=== PATIENT | female | born 1990 | race Caucasian/White ===

== ENCOUNTER 2017-03-18 20:56 | Emergency (ER) | payer OTHER, SELFPAY ==
[~2017-03-18 20:56] MED LIST: ISOVUE-370 76%-LOCM 1 ML ONE
--- NOTE | 2017-03-18 21:39 | RAD ---
CHEST ONE VIEW: History: Chest pain. Comparison: 02-26-10 FINDINGS: Cardiac silhouette is magnified by projection. Pulmonary vasculature is unremarkable. Mediastinum is midline. There is no lobar consolidation or evidence of pneumothorax. IMPRESSION: No active cardiopulmonary abnormalities are demonstrated. POS: [facility]
[2017-03-18 22:01] LABS: #Eosinphils 0.2 thou/uL (0.0-0.7); #Lymphocytes 2.9 thou/uL (1.20-3.40); #Monocytes 0.7 thou/uL (0.11-0.59); #Neutrophils 8.1 thou/uL (1.40-6.50); %Lymphocytes 24.2 % (21.0-51.0); Hematocrit 37.9 % (36.0-47.0); Mean Platelet Volume 6.5 fL (7.4-10.4); Red Blood Cell (RBC) Count 4.37 mill/uL (4.20-5.40)
[2017-03-18] MEDS ORDERED: Morphine 4 MG/ML VIAL ONE (22:05)
[2017-03-18 22:06] LABS: PTT 25.4 SEC (22.9-36.1); Prothrombin Time 12.6 SEC (12.0-14.7)
[2017-03-18] MEDS ORDERED: Mag-Al 1200 mg/1200 mg/30 ML UDCUP ONE (22:12)
[2017-03-18] MEDS ORDERED: Lidocaine Viscous Sol 2% 15 ml UD Cup ONE (22:12)
[2017-03-18 22:22] LABS: ALT (SGPT) 23 U/L (8-55); AST (SGOT) 25 U/L (5-34); Alkaline Phosphatase 138 U/L (40-150); Anion Gap 14 mmol/L (10-20); BUN (Urea Nitrogen) 9 mg/dL (7.0-18.7); Bilirubin, Total Less than 0.2 mg/dL (0.2-1.2); CK (CPK) 32 U/L (29-168); Calc. Creatinine Clearance 0 mL/min (70-130); Calcium 9.1 mg/dL (7.8-10.44); Carbon Dioxide 25 mmol/L (22-29); Chloride 103 mmol/L (98-107); Estimated GFR-MDRD Greater than 90; Globulin 3.4 g/dL (2.4-3.5); Lipase 18 U/L (8-78); Protein, Total 7.2 g/dL (6.0-8.3)
[2017-03-18 22:26] LABS: Troponin I Less than 0.010 ng/mL (< 0.028)
--- NOTE | 2017-03-18 23:55 | CT ---
CT ARTERIOGRAM CHEST WITH IV CONTRAST AND 3D MIP IMAGING: History: Chest pain. FINDINGS: There is good contrast opacification of the pulmonary arteries and thoracic aorta with normal branchi ng of the great vessels. No mediastinal adenopathy or pleural fluid are evident. No lobar consolidati on. IMPRESSION: No CT evidence of pulmonary embolus. POS: [facility]
== END 2017-03-19 00:06 | disposition home or self-care (01) ==
LOC: ERS 20:56
DX: R06.00 Dyspnea, unspecified (principal); R10.811 Right upper quadrant abdominal tenderness
CPT/HCPCS: 36415; 71010; 71275; 80053; 82550; 82553; 83690; 84484; 85025; 85379; 85610; 85730; 93005; 96361; 96374; J2270

== ENCOUNTER 2017-12-21 08:56 | Outpatient (CLI) | payer OTHER | END 2017-12-21 08:57 | disposition home or self-care (01) | LOC: BICULT 08:56 | PROVIDERS: ATTEND Nurse Practitioner | DX: O09.92 Supervision of high risk pregnancy, unspecified, second trimester (principal); Z3A.24 24 weeks gestation of pregnancy | CPT/HCPCS: 76805 ==

== ENCOUNTER 2018-04-07 06:43 | Inpatient (IN) | payer OTHER ==
[2018-04-07 07:31] VITALS: BMI 42.1
[2018-04-07] MEDS ORDERED: Ondansetron HCl/PF 4 MG/2 ML Vial IVP PRN (08:41)
[2018-04-07] MEDS ORDERED: Ondansetron PF 4 MG/2 ML Vial IVP PRN ×2 (08:41→08:45)
[2018-04-07] MEDS ORDERED: Promethazine HCl 25 MG/ML VIAL IM PRN ×2 (08:41→08:45)
[2018-04-07] MEDS ORDERED: Naloxone HCl 0.4 mg/ml Vial IV PRN (08:41)
[2018-04-07] MEDS ORDERED: Promethazine HCl 25 MG SUPP PR PRN (08:41)
[2018-04-07] MEDS ORDERED: Naloxone HCl 0.4 mg/ml Vial IVP PRN ×2 (08:41)
[2018-04-07] MEDS ORDERED: Eucerin (Mineral Oil/Petrolatum,White) 30 gm Jar TOP PRN (08:41)
[2018-04-07] MEDS ORDERED: Communication Order-Pharmacy FS SCH (08:45)
[2018-04-07] MEDS ORDERED: Ketorolac Tromethamine 30 MG/ML VIAL IVP SCH ×3 (08:45→12:00)
[2018-04-07] MEDS ORDERED: Bicitra 30 ML UDCUP PO SCH (08:45)
[2018-04-07] MEDS ORDERED: Lactated Ringer's 1,000 ML IV SCH (08:45)
[2018-04-07] MEDS ORDERED: CEFAZOLIN/Water 2 GM/20 ML SYRINGE SLOW IVP SCH (08:45)
[2018-04-07] MEDS ORDERED: Fentanyl 100 MCG/2 ML VIAL ONE (08:49)
[2018-04-07] MEDS ORDERED: Morphine PF 1 MG/ML SYR ONE (08:49)
[2018-04-07] MEDS ORDERED: Oxytocin 10 UNITS/ML VIAL ONE (08:50)
[2018-04-07] MEDS ORDERED: Ondansetron PF 4 MG/2 ML Vial ONE (08:50)
[2018-04-07] MEDS ORDERED: Dexamethasone 4 mg/ml Vial ONE (08:50)
[2018-04-07] MEDS ORDERED: PHENYLEPHRINE-NS 100 MCG/ML 10 ML SYRINGE ONE (08:50)
[2018-04-07] MEDS ORDERED: Ketorolac Tromethamine 30 MG/ML VIAL ONE ×2 (08:50→10:50)
[2018-04-07] MEDS ORDERED: Bicitra 30 ML UDCUP ONE (08:54)
[2018-04-07] MEDS ORDERED: Lidocaine 2% PF Inj 2 ML VIAL ONE (08:55)
[2018-04-07] MEDS: CEFAZOLIN 2 GM/50 ML BAG ONE ×2 (08:55→09:04)
[2018-04-07] MEDS ORDERED: Bupivacaine 0.75% W/DEXTROSE 8.25% 2 ML AMP ONE (08:55)
[2018-04-07 08:58] LABS: Hemoglobin 12.1 g/dL (12.0-16.0); Mean Corpuscular HGB CONC 34.1 g/dL (32.0-36.0); Mean Corpuscular Hemoglobin 29.5 pg (27.0-31.0); Mean Corpuscular Volume 86.6 fL (78.0-98.0); Platelet Count 272 thou/uL (130-400); RBC Distribution Width 13.5 % (11.5-14.5); White Blood Cell (WBC) Count 8.7 thou/uL (4.8-10.8)
[2018-04-07 09:30] LABS: HBSAg Index 0.21 S/CO (0-0.99); Hep B Surf Ag Non-Reactive S/CO (NonReactive); Syphilis Antibody Nonreactive (Nonreactive); Syphilis Antibody Index 0.03 S/CO (<1.00 Non-Reactive)
[2018-04-07] MEDS ORDERED: diphenhydrAMINE 50 MG/ML VIAL ONE (10:49)
[2018-04-07] MEDS: diphenhydrAMINE 50 MG/ML VIAL IVP PRN ×2 (11:03→21:28)
[2018-04-07] MEDS: Lactated Ringer's 1,000 ML IV SCH ×2 (11:30→15:38)
[2018-04-07] MEDS: Acetaminophen 1,000 MG in Premix Bag 1 BAG IVPB PRN ×2 (11:51→19:54)
[2018-04-07] MEDS ORDERED: NS / Oxytocin 40 units/1000ml 1,000 ML ONE (11:55)
[2018-04-07] MEDS ORDERED: NS / Oxytocin 40 units/1000ml 1,000 ML IV SCH (12:20)
[2018-04-07] MEDS ORDERED: Lanolin Ointment 7 GM TUBE TOP PRN (12:20)
[2018-04-07] MEDS ORDERED: Adacel (T-DAP) 0.5 ML SYRINGE IM ONE (12:20)
[2018-04-07] MEDS ORDERED: Bisacodyl 10 MG SUPP PR PRN (12:20)
[2018-04-07] MEDS ORDERED: Ibuprofen 800 MG TAB PO SCH (14:00)
[2018-04-07] MEDS ORDERED: Morphine 2 MG/ML SYRINGE SLOW IVP PRN (14:24)
[2018-04-07] MEDS: Ketorolac Tromethamine 30 MG/ML VIAL IVP SCH ×2 (16:42→21:35)
[2018-04-07] MEDS ORDERED: Zolpidem Tartrate 5 MG TAB PO PRN (20:45)
[2018-04-07] MEDS: Simethicone Chewable 80 MG TAB PO PRN (21:29)
[2018-04-07] MEDS: Docusate Calcium (SURFAK) 240 MG CAP PO SCH (21:29)
[2018-04-08] MEDS: Lactated Ringer's 1,000 ML IV SCH ×3 (00:20→14:36)
[2018-04-08] MEDS: Ferrous Sulfate 325 MG TAB PO SCH ×2 (00:21→07:18)
[2018-04-08] MEDS: HYDROcodone/Acetaminophen 5/325 mg Tablet PO PRN ×3 (02:39→21:35)
[2018-04-08] MEDS: Ketorolac Tromethamine 30 MG/ML VIAL IVP SCH ×2 (05:05→10:30)
--- NOTE | 2018-04-08 06:12 | PDOC.OPDEL ---
OB Operative/Delivery Note Delivery Dr/Surgeon: Resident: Phyllis Perdue MD, PGY-3 Assist: Attending: Tata Bourne MD Pre-Delivery Diagnosis: scheduled section Procedure/Post Delivery Dx: repeat low transverse CS Weeks gestation: 39 Anesthesia: spinal - Findings A Sex: male Weight: 4.023 kg - 1 min: 8 - 5 min: 9 - Additional Findings/Plan Placenta delivered: manual removal findings: low transverse hysterotomy without extension, normal uterus, normal ovaries Estimated blood loss: 800 mL Compilations/Other Findings: Anterior uterine adhesions which were easily dissected down Post delivery plan: routine recovery (Please see dictated operative report for full details.)
--- NOTE | 2018-04-08 06:15 | PDOC.PP ---
Post Progress Note Post Day #: POD#1 Subjective: Resting, no complaints. PO intake tolerated: yes Flatus: no Ambulation: no Vital Signs (12 hours) Temp Pulse Resp BP Pulse Ox 04/08/18 06:03 18 04/08/18 03:05 98.6 F 90 20 112/56 L 04/08/18 02:00 18 04/08/18 00:00 97.8 F 85 20 108/59 L 04/07/18 22:00 18 04/07/18 20:31 97.9 F 89 16 94/54 L 92 L Weight Weight 101.151 kg - Physical Examination General: NAD Respiratory: non-labored breathing Abdominal: no distention Extremities: negative homans (B) Psychiatric: normal affect Result Diagrams: 04/07/18 08:02 Additional Labs: Post Labs Blood Type A POSITIVE 04/07/18 08:02 Hep Bs Antigen Non-Reactive S/CO (NonReactive) 04/07/18 08:02 - Assessment/Plan Doing well s/p repeat C/S. Advance diet. Ambulate. H/H pending. Cont. Dilantin.
--- NOTE | 2018-04-08 06:15 | PDOC.PP ---
Post Progress Note Post Day #: 1 Subjective: Feeling well this morning. Up to the BR without issue this morning. Pain adequately controlled. PO intake tolerated: yes Flatus: yes Ambulation: yes Vital Signs (12 hours) Temp Pulse Resp BP Pulse Ox 04/08/18 06:03 18 04/08/18 03:05 98.6 F 90 20 112/56 L 04/08/18 02:00 18 04/08/18 00:00 97.8 F 85 20 108/59 L 04/07/18 22:00 18 04/07/18 20:31 97.9 F 89 16 94/54 L 92 L Weight Weight 101.151 kg - Physical Examination General: NAD Cardiovascular: no m/r/g, RRR Respiratory: clear to auscultation bilaterally Abdominal: + bowel sounds, lochia, no distention, appropriately TTP Fundus firm & at: umbilicus Skin: CS incision dry & intact (pressure dressing still in place, no oozing), no rash Neurological: no gross focal deficits Psychiatric: A&Ox3, normal affect Result Diagrams: 04/08/18 05:44 Additional Labs: Post Labs Blood Type A POSITIVE 04/07/18 08:02 Hep Bs Antigen Non-Reactive S/CO (NonReactive) 04/07/18 08:02 (1) Previous section Code(s): Z98.891 - HISTORY OF UTERINE SCAR FROM PREVIOUS SURGERY Status: Acute (2) Epilepsy Code(s): G40.909 - EPILEPSY, UNSP, NOT INTRACTABLE, WITHOUT STATUS EPILEPTICUS Status: Acute (3) Glucose intolerance Code(s): E74.39 - OTHER DISORDERS OF INTESTINAL CARBOHYDRATE ABSORPTION Status : Acute (4) Positive GBS test Code(s): B95.1 - STREPTOCOCCUS, GROUP B, CAUSING DISEASES CLASSD ELSWHR Status : Acute - Assessment/Plan 28 yo F now 3003 s/p rLTCS on 04/07 1. POD #1 - Meeting all post op milestones - No flatus or BM yet - Pain adequately controlled - Encouraged ambulation today 2. Epilepsy - Dilantin restarted - Discuss implications of 3. GBS positive - Membranes intact at delivery 4. Glucose intolerance - Failed 1 hour, nml 3 hour - Recommend f/u pp Continue current plan of care. <Phyllis Orlando E - Last Filed: 12/14/18 08:28> Vital Signs (12 hours) Temp Pulse Resp BP Pulse Ox 04/09/18 08:00 97.9 F 97 16 139/63 95 04/09/18 05:30 97.5 F L 106 H 20 129/76 04/09/18 01:15 98.0 F 107 H 20 130/75 Weight Weight 101.151 kg Result Diagrams: 04/09/18 09:04 Additional Labs: Post Labs Blood Type A POSITIVE 04/07/18 08:02 Hep Bs Antigen Non-Reactive S/CO (NonReactive) 04/07/18 08:02 <Geoffrey Mcclain - Last Filed: 04/09/18 10:06> Attending Addendum - Attending Addendum Date/Time: 04/09/18 1006 I evaluated the patient and discussed the management with Dr. Orlando. I agree with the Assessment and Plan documented above. <Geoffrey Mcclain - Last Filed: 04/09/18 10:06>
[2018-04-08 06:19] LABS: Hemoglobin 10.9 g/dL (12.0-16.0); Mean Corpuscular HGB CONC 34.1 g/dL (32.0-36.0); Mean Corpuscular Volume 88.1 fL (78.0-98.0); Mean Platelet Volume 6.9 fL (7.4-10.4); Platelet Count 235 thou/uL (130-400); RBC Distribution Width 13.5 % (11.5-14.5); Red Blood Cell (RBC) Count 3.63 mill/uL (4.20-5.40); White Blood Cell (WBC) Count 6.7 thou/uL (4.8-10.8)
[2018-04-08] MEDS: Docusate Calcium (SURFAK) 240 MG CAP PO SCH ×2 (07:59→21:37)
[2018-04-08] MEDS: Prenatal Vitamin 1 TAB PO SCH (07:59)
[2018-04-08] MEDS: diphenhydrAMINE 50 MG/ML VIAL IVP PRN (07:59)
[2018-04-08] MEDS ORDERED: Sodium Chloride 0.9% 10 ML ONE (10:29)
[2018-04-08] MEDS: Ibuprofen 800 MG TAB PO SCH ×2 (14:30→21:37)
--- NOTE | 2018-04-08 15:39 | PDOC.EVN ---
Event Note - Event Note Event Note: I was called to the room for increased pain. Pt is about 30hrs after csection and had received duromorph at time of spinal. Pt reports she is hurting alot more than before since she got up at 230PM to go to the bathroom. She is tolerating a regular diet and is ambulating. today she had toradol at 0700, ibuprofen at 1400 with two norco 5/325. 98 118/58 83 Abdomen soft but tender incision clean intact with dressing. cbc wc 6.9 hbg10.9 hct 32 plate 239 a/p 28YO POD 1 UNCOMPLICATED REPEAT C SECTION TREATED WITH DUROMORPH AT TIME OF SPINAL. Likely her increased pain is the result of the long acting analgesic wearing off. will give 10mg morphine and zofran 8mg sl. Will continue po regimen and reevaluate in a few hours.
[2018-04-08] MEDS ORDERED: Morphine 2 MG/ML SYRINGE IM SCH (15:45)
[2018-04-08] MEDS ORDERED: Ondansetron ODT 4 MG TAB SL SCH (16:30)
[2018-04-09] MEDS: Ferrous Sulfate 325 MG TAB PO SCH ×3 (00:43→20:58)
[2018-04-09] MEDS: HYDROcodone/Acetaminophen 5/325 mg Tablet PO PRN ×4 (01:26→18:14)
[2018-04-09] MEDS: Lactated Ringer's 1,000 ML IV SCH ×3 (01:53→15:49)
--- NOTE | 2018-04-09 03:36 | OP ---
DATE OF PROCEDURE: 04/07/2018 RESIDENT SURGEON: Phyllis Orlando M.D., PGY-3 ATTENDING SURGEON: Paul Bourne M.D. PROCEDURE PERFORMED: Repeat low transverse section. PREOPERATIVE DIAGNOSES: 1. Term uterine . 2. Previous x2. 3. Epilepsy. 4. Glucose intolerance. 5. Group B streptococcus positive. POSTOPERATIVE DIAGNOSES: 1. Status post repeat low transverse section with anterior adhesions noted. 2. Term uterine . 3. Previous x2. 4. Epilepsy. 5. Glucose intolerance. 6. Group B streptococcus positive. ANESTHESIA: Spinal. INDICATIONS: The patient is a 28-year-old, G3, P2-0-0-2 at 39.2 weeks' gestation, who presented for repeat scheduled . PROCEDURE IN DETAIL: After risks, benefits, and alternatives were explained to the patient, she gave informed consent. Preoperative antibiotics included cefazolin 2 grams IV. The patient was taken to the operating room and spinal anesthesia was initiated. She was placed in supine position with left tilt, and prepped and draped in the usual sterile fashion. A Pfannenstiel incision was made with a scalpel and carried down to the level of the fascia, which was sharply nicked. The fascial cut was extended bilaterally with Greene scissors. The inferior and superior edges of the cut fascial edges were elevated with Candie clamps and the underlying rectus muscles were sharply and bluntly dissected free. The recti were divided digitally and retracted manually. The peritoneum was entered bluntly and some anterior adhesions were noted, which were taken down without difficulty. The peritoneum was retracted manually. Adi O was placed. Bladder flap was made with Metzenbaum scissors. A low transverse score was made with a scalpel and the uterus was entered in the midline with the scalpel. Clear fluid was seen. The hysterotomy was extended manually. The was noted to be vertex and easily delivered by fundal pressure. Mouth and nares were bulb suctioned. Cord clamped and cut and grossly normal male was handed to the waiting nurse. Cord blood was obtained. Placenta was manually extracted and found to be intact with three vessel cord and discarded. The endometrium was curetted with a dry lap. The hysterotomy was repaired with a running locking 1-0 Monocryl suture. Following this, hemostasis was noted. The abdomen was irrigated and suctioned free of clots. The ovaries and fallopian tubes were visualized and noted to be normal appearing. The uterus was internalized and Adi O was removed. The left edge of the hysterotomy was noted to be slightly oozing and a figure-of- eight suture was placed with good hemostasis. The peritoneum was closed with a running nonlocking 2-0 chromic suture. The fascia was closed with a running nonlocking 0 PDS suture x2. The subcutaneous tissue was irrigated and all bleeders were cauterized. The subcutaneous tissue was approximated with a running 2-0 plain gut suture. The skin was approximated with 4-0 Monocryl suture and Aquacell and a pressure dressing were applied. All counts were correct. The patient tolerated the procedure well, was taken to recovery room in stable condition. QBL: 681 mL. COMPLICATIONS: Anterior uterine adhesions noted, which were easily dissected down. SPECIMENS: Cord blood sent to lab for blood type. FINDINGS: Grossly normal male infant with Apgars of 8 and 9. Grossly normal placenta with three vessel cord discarded. DRAINS: [place] to gravity draining clear urine. Job ID: [id number] [facility]
[2018-04-09] MEDS: Ibuprofen 800 MG TAB PO SCH (05:39)
--- NOTE | 2018-04-09 07:05 | PDOC.PP ---
Post Progress Note Post Day #: 2 Subjective: Feeling ok this morning. She is tolerating PO and ambulating but pain increases after she is walking around. She is passing flatus and vaginal bleeding is minimal. Voiding without issue. [place] helps some with pain but she had the most relief with toradol. PO intake tolerated: yes Flatus: yes Ambulation: yes Vital Signs (12 hours) Temp Pulse Resp BP Pulse Ox 04/09/18 01:15 98.0 F 107 H 20 130/75 04/08/18 20:20 98.5 F 88 20 123/56 L 95 04/08/18 20:00 95 Weight Weight 101.151 kg - Physical Examination General: NAD Cardiovascular: no m/r/g, RRR Respiratory: clear to auscultation bilaterally, non-labored breathing Abdominal: + bowel sounds, lochia (scant), no distention, appropriately TTP Fundus firm & at: 1 cm above umbilicus Extremities: negative homans (B) Skin: CS incision dry & intact (bandage in place) Neurological: no gross focal deficits Psychiatric: A&Ox3, normal affect Result Diagrams: 04/08/18 05:44 Additional Labs: Post Labs Blood Type A POSITIVE 04/07/18 08:02 Hep Bs Antigen Non-Reactive S/CO (NonReactive) 04/07/18 08:02 (1) Previous section Code(s): Z98.891 - HISTORY OF UTERINE SCAR FROM PREVIOUS SURGERY Status: Acute (2) Epilepsy Code(s): G40.909 - EPILEPSY, UNSP, NOT INTRACTABLE, WITHOUT STATUS EPILEPTICUS Status: Acute (3) Glucose intolerance Code(s): E74.39 - OTHER DISORDERS OF INTESTINAL CARBOHYDRATE ABSORPTION Status : Acute (4) Positive GBS test Code(s): B95.1 - STREPTOCOCCUS, GROUP B, CAUSING DISEASES CLASSD ELSWHR Status : Acute - Assessment/Plan 28 yo F now 3003 s/p rLTCS on 04/07 1. POD #2 - Meeting all post op milestones - Passing flatus - Pain adequately controlled - Encouraged ambulation today - Will try toradol instead of motrin for the day with norco PRN 2. Epilepsy - Dilantin restarted - Discuss implications of 3. GBS positive - Membranes intact at delivery 4. Glucose intolerance - Failed 1 hour, nml 3 hour - Recommend f/u pp Continue current plan of care.
--- NOTE | 2018-04-09 08:21 | PRG ---
DATE OF SERVICE: 04/09/2018 POSTOPERATIVE PROGRESS NOTE PRIMARY OB: Josiah Marie MD SUBJECTIVE: The patient is a 28-year-old female, now postop day 3 status post a repeat . The patient has been having difficulty managing her pain consistently with oral medications that she receives and is requiring regular q.4 hours oral medications of the hydrocodone, usually two 5 mg tablets, and 800 mg of ibuprofen 3 times a day. The patient has difficulty getting out of bed. She does tolerate diet and is using the bathroom. Complicating her picture is during the surgical case, my glove was inadvertently cut somehow, unsure how long, but the end of the glove had been cut open exposing the patient to any bacterial jos that may have been present. OBJECTIVE: VITAL SIGNS: The patient remains afebrile with her most recent vital signs showing a blood pressure of 130/75, heart rate of 107, respiratory rate of 20, and temperature 98.0. GENERAL: She appears to be in some distress, but seems comfortable and staying still. ABDOMEN: Her fundus is tender, but firm. Her incision is clean, dry, and intact with Silvercel dressing. LABORATORY DATA: CBC is pending. ASSESSMENT AND PLAN: The patient is a 28-year-old female, postop day 3 with difficulty managing pain appropriately for her. The patient does admit that she has a very low tolerance pain itself. She has been maxing out on her available medication for pain. Given her more uncommon pain baseline and the known incident with the broken glove, there is some question or concern, is she developing a uterine infection, though the patient is afebrile. I will be repeating a CBC to compare to her prior CBCs, which have all been with a normal white blood cell count. We will continue postop management here in the hospital with pain control. Pain medications include hydrocodone 2 tablets p.o. p.r.n. for pain and ibuprofen 800 mg p.o. q.8 hours to be taken as scheduled. Job ID: [id number]
[2018-04-09 09:26] LABS: #Eosinphils 0.2 thou/uL (0.0-0.7); #Lymphocytes 1.4 thou/uL (1.20-3.40); #Monocytes 0.4 thou/uL (0.11-0.59); #Neutrophils 4.1 thou/uL (1.40-6.50); %Basophils 0.6 % (0.0-1.0); %Eosinophils 2.7 % (0.0-10.0); %Lymphocytes 22.9 % (21.0-51.0); %Neutrophils 67.7 % (42.0-75.0); Hemoglobin 11.4 g/dL (12.0-16.0); Mean Corpuscular HGB CONC 34.1 g/dL (32.0-36.0); Mean Corpuscular Hemoglobin 30.3 pg (27.0-31.0); Mean Corpuscular Volume 89.1 fL (78.0-98.0); Mean Platelet Volume 7.1 fL (7.4-10.4); Platelet Count 234 thou/uL (130-400); RBC Distribution Width 13.7 % (11.5-14.5); Red Blood Cell (RBC) Count 3.74 mill/uL (4.20-5.40); White Blood Cell (WBC) Count 6.1 thou/uL (4.8-10.8)
[2018-04-09] MEDS: Prenatal Vitamin 1 TAB PO SCH (10:01)
[2018-04-09] MEDS: Docusate Calcium (SURFAK) 240 MG CAP PO SCH (10:01)
[2018-04-09] MEDS: Ketorolac Tromethamine 30 MG/ML VIAL IM SCH ×2 (11:35→18:12)
[2018-04-09] MEDS ORDERED: Bisacodyl 10 MG SUPP PR SCH (12:00)
[2018-04-09] MEDS ORDERED: Ketorolac Tromethamine 60 MG/2 ML VIAL IM SCH (12:00)
--- NOTE | 2018-04-09 12:01 | PDOC.EVN ---
Event Note - Event Note Event Note: Paged by nurse due to patient having "anxiety attack" from the pain. The nurse reported that the patient had gotten up to go walk around and then started having severe pain. She began hyperventilating and her heart rate went up into the 130's. The nurse had her lay back down and her pulse improved to the 90's. She gave her a dose of IM toradol at that time. I went to assess the patient and she appeared to be laying comfortably in bed with a heating pad over her abdomen. Her abdominal exam was significant for diffuse abdominal tenderness, worse in the lower abdomen. No rebound, guarding, or distension. The patient had a normal pulse and respiratory rate. She endorses flatus, but denies BM. On chart review, the patient's hemaglobin has increased from yesterday and her pulse has been 90s-100s, which decreases the likelihood for any internal bleeding. The patient has also been afebrile and has had a normal WBC count, which decreases the likelihood of intra-abdominal infection. Will keep these both in the differential if the patient's clinical status deteriorates. At this time though it appears that the patient has a low pain threshold, so will attempt to maintain better pain control. There could also be a component of constipation contributing. -Will reassess in one hour as pt just received a dose of toradol -Continue heating pad as needed -Will give a one time dose of dulcolax -Simethicone prn <Sandie Reyna - Last Filed: 04/09/18 11:55> Attending Addendum - Attending Addendum Date/Time: 04/09/18 [id number] I evaluated the patient and discussed the management with Dr. Reyna. I agree with the Assessment and Plan documented above. <Geoffrey Mcclain - Last Filed: 04/09/18 14:15>
[2018-04-09] MEDS ORDERED: Simethicone Chewable 80 MG TAB PO SCH (12:15)
--- NOTE | 2018-04-09 14:00 | PDOC.EVN ---
Event Note - Event Note Event Note: Re-evaluated patient. She reports having a BM and that her pain is significantly improved after that. She is able to ambulate now with minimal pain and is wanting to eat something for lunch. She is due for a norco if needed, but she says that at this time she doesn't need it and will let the nurse know if she needs it after walking. -Continue bowel regimen -Continue pain regimen with norco prn and toradol scheduled. If pain remains controlled, can switch to ibuprofen tomorrow. <Sandie Reyna - Last Filed: 04/09/18 13:58> Attending Addendum - Attending Addendum Date/Time: 04/09/18 1412 I evaluated the patient and discussed the management with Dr. Reyna. I agree with the Assessment and Plan documented above. <Geoffrey Mcclain - Last Filed: 04/09/18 14:13>
[2018-04-09] MEDS: Ibuprofen 800 MG TAB PO PRN (20:58)
[2018-04-09] MEDS: Simethicone Chewable 80 MG TAB PO PRN (20:58)
[2018-04-10] MEDS: HYDROcodone/Acetaminophen 5/325 mg Tablet PO PRN (00:28)
[2018-04-10] MEDS: Docusate Calcium (SURFAK) 240 MG CAP PO SCH ×2 (00:30→09:05)
[2018-04-10] MEDS: Ibuprofen 800 MG TAB PO PRN (06:44)
--- NOTE | 2018-04-10 07:38 | PDOC.PP ---
Post Progress Note Post Day #: 3 Subjective: Feeling much better today. Pain adequately controlled, tolerating PO and felt much better after BM yesterday. Feels ready to go home today. PO intake tolerated: yes Flatus: yes Ambulation: yes Vital Signs (12 hours) Pulse Ox 04/09/18 20:00 99 Weight Weight 101.151 kg - Physical Examination General: NAD Cardiovascular: no m/r/g, RRR Respiratory: clear to auscultation bilaterally Abdominal: + bowel sounds, lochia (scant), no distention, appropriately TTP Fundus firm & at: umbilicus Extremities: negative homans (B) Skin: CS incision dry & intact Neurological: no gross focal deficits Psychiatric: A&Ox3, normal affect Result Diagrams: 04/09/18 09:04 Additional Labs: Post Labs Blood Type A POSITIVE 04/07/18 08:02 Hep Bs Antigen Non-Reactive S/CO (NonReactive) 04/07/18 08:02 (1) Previous section Code(s): Z98.891 - HISTORY OF UTERINE SCAR FROM PREVIOUS SURGERY Status: Acute (2) Epilepsy Code(s): G40.909 - EPILEPSY, UNSP, NOT INTRACTABLE, WITHOUT STATUS EPILEPTICUS Status: Acute (3) Glucose intolerance Code(s): E74.39 - OTHER DISORDERS OF INTESTINAL CARBOHYDRATE ABSORPTION Status : Acute (4) Positive GBS test Code(s): B95.1 - STREPTOCOCCUS, GROUP B, CAUSING DISEASES CLASSD ELSWHR Status : Acute - Assessment/Plan 28 yo F now 3003 s/p rLTCS on 04/07 1. POD #3 - Meeting all post op milestones - Passing flatus and had BM yesterday - Pain adequately controlled - Encouraged ambulation today - Will continue scheduled motrin and transition to tylenol #3 2. Epilepsy - Dilantin restarted 3. GBS positive - Membranes intact at delivery 4. Glucose intolerance - Failed 1 hour, nml 3 hour - Recommend f/u pp Plan for discharge today if she continues to do well this morning.
[2018-04-10] MEDS ORDERED: Acetaminophen/Codeine 30-300mg Tablet PO PRN ×2 (07:43)
[2018-04-10] MEDS ORDERED: Hydrocortisone 1% Cream 30 GM TUBE TOP PRN (07:43)
[2018-04-10 08:43] VITALS: BP 124/70; TEMP 98.2
[2018-04-10] MEDS: Lactated Ringer's 1,000 ML IV SCH (08:49)
[2018-04-10] MEDS: Prenatal Vitamin 1 TAB PO SCH (09:05)
[2018-04-10] MEDS: Ferrous Sulfate 325 MG TAB PO SCH (10:51)
== END 2018-04-10 11:35 | disposition home or self-care (01) | DRG 787 ==
LOC: L&D 06:43 → 3SW 12:32
PROVIDERS: ADMIT Family Medicine; ATTEND Family Medicine
PROC: 10D00Z1 Extraction of Products of Conception, Low, Open Approach (ICD-10-PCS; principal; 2018-04-07)
DX: O34.211 Maternal care for low transverse scar from previous cesarean delivery (principal); O99.354 Diseases of the nervous system complicating childbirth; G40.909 Epilepsy, unspecified, not intractable, without status epilepticus; Z3A.39 39 weeks gestation of pregnancy; Z37.0 Single live birth; O99.824 Streptococcus B carrier state complicating childbirth; E74.39 Other disorders of intestinal carbohydrate absorption; O99.62 Diseases of the digestive system complicating childbirth; O69.81X0 Labor and delivery complicated by cord around neck, without compression, not applicable or unspecified
CPT/HCPCS: 36415; 51702; 85025; 85027; 86780; 86850; 86900; 86901; 87340; 90715; J0131; J1100; J1200; J1885; J2270; J2274; J2405; J2590; J3010; J3490; Q0162